=== PATIENT | female | born 1990 | race Two or more races ===

== ENCOUNTER 2021-10-20 10:02 | Observation (INO) | payer MEDICAID ==
[~2021-10-20] VITALS: Ht 157.5 cm; Wt 74.8 kg
[2021-10-20] MEDS ORDERED: ceFAZolin 2 GM in D5W 5% 100 ML IV ONE (11:00)
[2021-10-20] MEDS ORDERED: LACTATED RINGER'S 1,000 ML IV ONE (11:00)
[2021-10-20] MEDS ORDERED: ACETAMINOPHEN 325 MG TAB PO ONE (11:00)
[2021-10-20] MEDS ORDERED: PREN-96 PO (13:53)
== END 2021-10-20 14:10 | disposition home or self-care (01) ==
LOC: LDRP 10:02
PROVIDERS: ADMIT Obstetrics & Gynecology; ATTEND Obstetrics & Gynecology
DX: O98.513 Other viral diseases complicating pregnancy, third trimester (principal); U07.1 COVID-19; O36.8130 Decreased fetal movements, third trimester, not applicable or unspecified; O26.893 Other specified pregnancy related conditions, third trimester; R68.83 Chills (without fever); Z3A.38 38 weeks gestation of pregnancy
CPT/HCPCS: 36415; 59025; 76818; 81002; 87426; 96365; 96366; G0378; G0379; J0690; J7060